=== PATIENT | female | born 1995 | race Two or more races ===

== ENCOUNTER 2023-01-09 08:37 | Emergency (ER) | payer OTHER ==
[~2023-01-09] VITALS: Ht 154.9 cm; Wt 54.0 kg
[~2023-01-09 08:37] MED LIST: IBUPROFEN800 MG PO
[2023-01-09] MEDS ORDERED: ADDERALL 10 MG10 MG (08:59)
[2023-01-09] MEDS ORDERED: VYVANSE30 M1 (08:59)
== END 2023-01-09 11:18 | disposition home or self-care (01) ==
LOC: ER 08:37
DX: S90.31XA Contusion of right foot, initial encounter (principal); S92.811A Other fracture of right foot, initial encounter for closed fracture; W10.8XXA Fall (on) (from) other stairs and steps, initial encounter; Y93.89 Activity, other specified; Y92.098 Other place in other non-institutional residence as the place of occurrence of the external cause; Y99.8 Other external cause status